=== PATIENT | born 2005 | race Caucasian/White ===

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

== ENCOUNTER 2024-02-29 21:25 | Emergency (ER) | payer OTHER, SELFPAY ==
[2024-02-29 21:53] VITALS: BP 131/86; PULSE 118; RESP 18; TEMP 37.2; O2SAT 100; BMI 21.1
[2024-02-29 22:26] LABS: MANUAL DIFF FLAG NO
[2024-02-29 22:28] LABS: Basophils Percent Auto 0.3 %; Eosinophils Percent Auto 0.2 %; Hematocrit 39.5 %; Hemoglobin 13.7 g/dl; Imm Gran Abs Auto 0.05 X10*3/uL (0.00-0.03); Imm Gran Pct Auto 0.4 % (0.0-0.4); Lymphocytes Absolute Auto 1.9 X10*3/uL; Lymphocytes Percent Auto 15.3 %; Mean Corpuscular HGB Conc 34.7 g/dl; Mean Corpuscular Hemoglobin 31.4 pg; Mean Corpuscular Volume 90.6 fL; Monocytes Absolute Auto 1.3 X10*3/uL; Monocytes Percent Auto 10.4 %; Neutrophils Absolute Auto 9.3 x10*3/uL; Neutrophils Percent Auto 73.4 %; Platelet Count 210 X10*3/uL; Red Blood Count 4.36 X10*6/uL; Red Cell Distribution Width 11.9 % (11.0-16.0); White Blood Count 12.6 X10*3/uL
[2024-02-29 22:32] LABS: Appearance Urine Turbid; Color Urine Yellow; Glucose Urine UA Negative (Negative); Leukocyte Esterase Urine Large (3+) (Negative); Nitrite Urine Positive (Negative); Specific Gravity - Urine 1.015 (1.005-1.025); UMIC TRIGGER UACC YES; Urine Blood Large (3+) (Negative); Urine Ketones Negative (Negative); Urine Protein 30 (1+) mg/dL (Neg-Trace)
[2024-02-29 22:37] LABS: Bacteria Urine 4+ (None Seen); Hyaline Casts Urine 0-2 /LPF (0-2); RBC Urine >20 /HPF (0-2); UACC Culture Trigger YES; WBC Urine >50 /HPF (0-5)
[2024-02-29 22:41] LABS: Alanine Aminotransferase 25 U/L; Albumin Level 4.3 g/dL; Alkaline Phosphatase 66 U/L; Anion Gap 14; Aspartate Amino Transferase 37 U/L; Bilirubin Total 0.8 mg/dL; Blood Urea Nitrogen 8 mg/dL; Calcium 9.3 mg/dL; Carbon Dioxide 24 mmol/L; Chloride 105 mmol/L; Estimated Glomerular Filt Rate > 60; Glucose Random 105 mg/dL; Potassium 3.5 mmol/L; Sodium 139 mmol/L
[2024-03-01 00:32] VITALS: BP 100/59; PULSE 67; RESP 16; TEMP 36.6; O2SAT 96
[2024-03-01 01:20] VITALS: BP 100/59; PULSE 67; RESP 16; TEMP 36.6; O2SAT 96
--- NOTE | 2024-03-01 03:08 | PC.NURSE ---
pt is leaving due to wait times.
== END 2024-03-01 03:08 | disposition left against medical advice (07) ==
PROVIDERS: Emergency Provider Emergency Medicine; PCP Pediatrics
DX: B99.9 Unspecified infectious disease (principal)
CPT/HCPCS: 36415; 80053; 81001; 85025; 87086; 99282; 99283

== ENCOUNTER 2024-03-16 10:40 | Emergency (ER) | payer OTHER, SELFPAY ==
[2024-03-16 10:50] VITALS: BP 129/86; PULSE 105; RESP 20; TEMP 36.4; O2SAT 99; BMI 21.3
[2024-03-16 12:29] LABS: Basophils Absolute Auto 0.1 X10*3/uL; Basophils Percent Auto 0.4 %; Eosinophils Percent Auto 0.1 %; Hematocrit 42.1 %; Hemoglobin 14.3 g/dl; Imm Gran Abs Auto 0.14 X10*3/uL (0.00-0.03); Imm Gran Pct Auto 0.8 % (0.0-0.4); Lymphocytes Absolute Auto 1.6 X10*3/uL; Lymphocytes Percent Auto 8.3 %; MANUAL DIFF FLAG SCAN; Mean Corpuscular Hemoglobin 30.5 pg; Mean Corpuscular Volume 89.8 fL; Mean Platelet Volume 8.4 fL (9.4-12.4); Monocytes Absolute Auto 1.7 X10*3/uL; Monocytes Percent Auto 9.3 %; Neutrophils Absolute Auto 15.2 x10*3/uL; Neutrophils Percent Auto 81.1 %; Platelet Count 267 X10*3/uL; Red Blood Count 4.69 X10*6/uL; Red Cell Distribution Width 11.9 % (11.0-16.0); SCAN SMEAR FLAG 1; White Blood Count 18.7 X10*3/uL
[2024-03-16 12:47] LABS: Alanine Aminotransferase 17 U/L; Albumin Level 4.2 g/dL; Alkaline Phosphatase 75 U/L; Anion Gap 10; Aspartate Amino Transferase 23 U/L; Bilirubin Total 0.9 mg/dL; Blood Urea Nitrogen 9 mg/dL; Calcium 9.3 mg/dL; Carbon Dioxide 27 mmol/L; Chloride 103 mmol/L; Estimated Glomerular Filt Rate > 60; Glucose Random 95 mg/dL; Potassium 4.2 mmol/L; Sodium 136 mmol/L; Total Protein 7.5 g/dL
[2024-03-16 13:05] LABS: SLIDE REVIEW VERIFIED
[2024-03-16 13:06] LABS: Influenza A PCR NEGATIVE; Influenza B PCR NEGATIVE; Resp Syncy Virus RNA Qual PCR NEGATIVE (Negative); SARS COV2 PCR INHOUSE NEGATIVE
[2024-03-16 14:15] LABS: Appearance Urine Clear; Color Urine Yellow; Glucose Urine UA Negative (Negative); Leukocyte Esterase Urine Large (3+) (Negative); Nitrite Urine Negative (Negative); Specific Gravity - Urine <= 1.005 (1.005-1.025); UMIC TRIGGER UACC YES; Urine Blood Trace (Negative); Urine Ketones Negative (Negative); Urine Protein Negative (Neg-Trace)
[2024-03-16 14:17] LABS: Bacteria Urine 4+ (None Seen); Hyaline Casts Urine 0-2 /LPF (0-2); RBC Urine 0-2 /HPF (0-2); UACC Culture Trigger YES; WBC Urine 21-50 /HPF (0-5)
--- NOTE | 2024-03-16 18:18 | ED.ABDPAIN ---
HPI - Abdominal Pain General Chief Complaint: Abdominal Pain Stated Complaint: abd and back pain Source: patient Mode of arrival: ambulatory Limitations: no limitations History of Present Illness HPI narrative: 19-year-old non binary born female presents to the emergency department with urinary frequency, urgency, fatigue, malaise, myalgias, discomfort in bilateral lower back, burning with urination going on for the past few weeks worsening. Patient reports they were seen at [facility] they were given Bactrim for suspected UTI, symptoms slightly improved however never went away. Reports they do not think that the antibiotics worked well. Comes back in today because the UTI still has not gone away. Denies nausea, vomiting, abdominal pain, headache, vision changes, chest pain, shortness of breath, diarrhea, wheezing. Related Data Previous Rx's ?Medication ?Instructions ?Recorded cefuroxime axetil 250 mg tablet 250 mg PO BID 7 days #14 tabs 03/16/24 naproxen 500 mg tablet 500 mg PO BID #14 tabs 03/16/24 phenazopyridine 100 mg tablet 200 mg (2 x 100 mg) PO TID 2 days 03/16/24 (Pyridium) #6 tabs Allergies Allergy/AdvReac Type Severity Reaction Status Date / Time fruits Allergy Unknown Uncoded 03/16/24 10:54 Review of Systems Review of Systems Constitutional : No Weight loss, No Fever, No Chills, No Fatigue, No Malaise ENT/Mouth : No sore throat, No Rhinorrhea Eyes: No Eye Pain, No Swelling, No Redness Cardiovascular : No Chest Pain, No SOB, No Dyspnea on Exertion, No Orthopnea, No Edema, No Palpitations Respiratory : No Cough, No Sputum, No Wheezing Gastrointestinal : No Nausea, No Vomiting, No Diarrhea, No Constipation, No abdominal Pain, No Hematochezia, No Melena Genitourinary : + Dysuria, + Urinary Frequency, No Hematuria, Musculoskeletal : No joint pain, No Myalgias, No Joint Swelling Skin : No Skin Lesions, No rash Neuro : No Weakness, No Numbness, No Dizziness, No Headache Psych : No Anxiety/Panic, No Depression All other systems reviewed and are negative Yes all other systems are reviewed and are negative PMFSH Past Medical History Attestation statement: The following information was validated with the patient. Source: old records reviewed and nursing notes reviewed Surgical History Hx of bilateral mastectomy Social History Social History Patient Tobacco Use Status: Current everyday Tobacco user Current occupational status: employed Current occupation: DENTAL EQUIPMENT TECHNICIAN, right hand dominant Physical Exam ED Vital Signs: Vital Signs - 24 hr 03/16/24 10:50 Temperature 97.6 F Pulse Rate 105 Respiratory Rate 20 Blood Pressure 129/86 Pulse Oximetry 99 Oxygen Delivery Method Room Air BMI result Body Mass Index 21.3 vss Appearance: Alert.? Oriented X3.? No acute distress.? Head: Normocephalic, atraumatic, no step-offs or deformities Eyes: Pupils equal, round and reactive to light.? Neck: Normal inspection.? Neck supple.? CVS: Normal heart rate and rhythm.? Pulses normal.? Respiratory: No respiratory distress.? Breath sounds normal.? Abdomen: Soft and nontender.? Skin: Skin warm and dry.? Normal skin color.? Normal skin turgor.? Extremities: No lower extremity edema.? No calf ttp. 5/5 strength to bilateral upper and lower extremities Back: No midline tenderness, no C-spine tenderness, full range of motion, no CVA tenderness bilaterally Neuro: Oriented X 3.? No motor deficit.? No sensory deficit. CN 2-12 intact Course Reevaluation(s) Reevaluation #1: CBC with leukocytosis and slight shift. Chemistry no acute findings requiring intervention. Normal BUN and creatinine. Patient's UA with 4+ bacteria, increased red blood cells and large amounts of leukocyte esterases. Negative nitrates. Flu, COVID, RSV negative. Educated patient on diagnosis and treatment plan, answered all question, patient verbalizes understanding. At this time patient will be discharged home, advised to return with new or worsening symptoms. Educated on worrisome signs and symptoms and when to return. At this time I feel comfortable discharge home. Time: 18:33 Medical Decision Making Medical Decision Making MDM Narrative: 19 yo presents w/ uti sx, body aches and flank pain bl X few weeks. Took bactrim recently PE benign Hx and pe concerning for uti vs cysstitis vs pylo. Unlikely kidney stone, obstructing uropathy, urosepsis. Unlikely metabolic derangement Labs, urine Differential Diagnosis Differential Diagnoses: The differential diagnosis associated with the presentation includes Hx and pe concerning for uti vs cysstitis vs pylo. Unlikely kidney stone, obstructing uropathy, urosepsis. Unlikely metabolic derangement Admission/Observation Consideration of admission/observation: Escalation of care including admission/observation considered Possible Lab Data MDM Lab Attestation statement: I reviewed the patient's lab results. 03/16/24 12:17 03/16/24 12:17 Labs: Lab Results 03/16/24 03/16/24 Range/Units 12:17 14:08 WBC 18.7 X10*3/uL RBC 4.69 X10*6/uL Hgb 14.3 g/dl Hct 42.1 % MCV 89.8 fL MCH 30.5 pg MCHC 34.0 g/dl RDW 11.9 (11.0-16.0) % Plt Count 267 X10*3/uL MPV 8.4 L (9.4-12.4) fL Immature Gran % (Auto) 0.8 H (0.0-0.4) % Neut % (Auto) 81.1 % Lymph % (Auto) 8.3 % Dickinson % (Auto) 9.3 % Eos % (Auto) 0.1 % Baso % (Auto) 0.4 % Lymph # (Auto) 1.6 X10*3/uL [place] # (Auto) 1.7 X10*3/uL Eos # (Auto) 0.0 X10*3/uL Baso # (Auto) 0.1 X10*3/uL Abs Immat Gran (auto) 0.14 H (0.00-0.03) X10*3/uL Absolute Neuts (auto) 15.2 x10*3/uL Absolute Nucleated RBC 0.000 (0.0-0.012) X10*3/uL Nucleated RBC % (auto) 0.0 (0.0-0.2) /100WBC Smear Tech's Comments VERIFIED Sodium 136 mmol/L Potassium 4.2 mmol/L Chloride 103 mmol/L Carbon Dioxide 27 mmol/L Anion Gap 10 BUN 9 mg/dL Creatinine 0.83 mg/dL Estim Creat Clear Calc TNP Estimated GFR > 60 Random Glucose 95 mg/dL Calcium 9.3 mg/dL Total Bilirubin 0.9 mg/dL AST 23 U/L ALT 17 U/L Alkaline Phosphatase 75 U/L Total Protein 7.5 g/dL Albumin 4.2 g/dL Urine Color Yellow Urine Appearance Clear Urine pH 6.0 (5.0-9.0) Ur Specific [place] <= 1.005 (1.005-1.025) Urine Protein Negative (Neg-Trace) mg/dL Urine Glucose (UA) Negative (Negative) mg/dL Urine Ketones Negative (Negative) mg/dL Urine Blood Trace (Negative) Urine Nitrite Negative (Negative) Ur Leukocyte Esterase Large (3+) H (Negative) Urine RBC 0-2 (0-2) /HPF Urine WBC 21-50 H (0-5) /HPF Ur Squamous Epith Cells 3-5 (0-2) /HPF Urine Bacteria 4+ (None Seen) Hyaline Casts 0-2 (0-2) /LPF Influenza Type A (PCR) NEGATIVE Influenza Type B (PCR) NEGATIVE RSV RNA Qual (PCR) NEGATIVE (Negative) SARS-CoV-2 RNA (RT-PCR) NEGATIVE Independent Historian Clinical information obtained from an independent historian. History obtained from or confirmed by: Other (Friend) External Record Review External record reviewed: Inpatient record, Office record, Outpatient record, Prior outpatient labs, Prior outpatient radiology, Primary care record and Outside ED record Prescription Management I considered prescription management with: Antibiotic Critical Care Time Critical Care Time Critical Care Time: No Discharge Plan Discharge Clinical Impression: Urinary tract infection Patient Disposition: Home, Self-Care Instructions: Urinary Tract Infection in Older Adults (ED) Additional Instructions: Take your medications as prescribed. If you were prescribed antibiotics today, it is important that you take your medication to their entirety, do not skip any doses, do not finish them early. Follow-up with your primary care provider this week. Return to the emergency department with new or worsening symptoms. Such as fevers, chills, chest pain, shortness of breath, nausea, vomiting, dizziness, headache, vision changes, lethargy In case of emergency call 911 Prescriptions: New naproxen 500 mg tablet 500 mg PO BID Qty: 14 0RF cefuroxime axetil 250 mg tablet 250 mg PO BID 7 Days Qty: 14 0RF phenazopyridine [Pyridium] 100 mg tablet 200 mg PO TID 2 Days Qty: 6 0RF Referrals: [facility] [Provider Group] - 2 days Rashel Oneil MD [Primary Care Provider] - 2 days ED Physician,Alejandro [Emergency Provider] - 2 days Print Language: Portuguese
[2024-03-16 18:19] VITALS: BP 108/72; PULSE 87; RESP 18; TEMP 36.9; O2SAT 100
[2024-03-16 18:35] VITALS: BP 108/72; PULSE 87; RESP 18; TEMP 36.9; O2SAT 100
== END 2024-03-16 18:36 | disposition home or self-care (01) ==
PROVIDERS: Emergency Provider Emergency Medicine; PCP Pediatrics
DX: N39.0 Urinary tract infection, site not specified (principal); Z03.818 Encounter for observation for suspected exposure to other biological agents ruled out
CPT/HCPCS: 0241U; 80053; 81001; 85025; 87086; 87088; 87186; 99282; 99283

== ENCOUNTER 2024-06-07 06:23 | Outpatient (REF) | payer SELFPAY ==
--- NOTE | ~2024-06-07 | XR_ITS ---
EXAMINATION: XR FOOT, RIGHT CLINICAL INFORMATION: Displaced fracture of the fifth metatarsal bone COMPARISON: Foot radiographs 11/28/2023 TECHNIQUE: 3 views of the foot FINDINGS: Previously seen tiny avulsed fracture fragment on the lateral aspect of the cuboid bone appears well corticated on today's exam with suspected osseous bridging. Joint spaces are maintained. No joint effusion. Mild soft tissue swelling about the dorsum of the foot. XR/XR foot RT min 3V IMPRESSION: 1. Previously seen tiny avulsed fracture fragment on the lateral aspect of the cuboid bone appears well corticated on today's exam with suspected osseous bridging, which can be seen in the setting of prior trauma. 2. Mild soft tissue swelling about the dorsum of the foot.
== END 2024-06-07 06:24 | disposition home or self-care (01) ==
LOC: HO.HOSX 06:23
PROVIDERS: Visit Provider Physician Assistant
DX: S93.491A Sprain of other ligament of right ankle, initial encounter (principal); S92.214D Nondisplaced fracture of cuboid bone of right foot, subsequent encounter for fracture with routine healing
CPT/HCPCS: 73630; 99212

== ENCOUNTER 2024-06-07 11:17 | Outpatient (AMB) | payer MEDICAID, SELFPAY ==
--- NOTE | 2024-06-07 11:44 | A.OFFVIS_ITS ---
Vital Signs 06/07/24 11:46 Height 5 ft 3 in Weight 120 lb BMI 21.3 Intake Visit Reasons: OV- Right, cuboid fracture-DOI 11/28/23 Intake Note: Kristal a 18 year old non-binary individual presents today for an ER follow up of right foot, DOI 11/27/23. Patient reports pain with weight bear and walking. States improvement in pain since making appointment however pain continues and lump has been getting worse. At their last appointment patient was referred to PT however unable to attend. Allergies fruits Allergy (Uncoded 06/07/24 11:51) Unknown HPI HPI OV- Right, cuboid fracture-DOI 11/28/23: Details: 19-year-old non binary individual who returns to the office today for a follow- up of right foot fracture, 11/28/23. She reports she has improvement in her pain since making the appointment however she continues to have pain with weight be aring and ambulation. She also states her lump has been getting worse. She was referred to physical therapy in her last however she was unable to attend. [facility] Surgical History Hx of bilateral mastectomy Social History Patient Tobacco Use Status: Current everyday Tobacco user Current occupational status: employed Current occupation: SOCIAL SERVICES DIRECTOR, right hand dominant Review of Systems Const All systems reviewed & are unremarkable except as noted in HPI and below Physical Exam Vital Signs: BMI result Body Mass Index 21.3 Const General: cooperative, healthy appearing, comfortable, no acute distress, well developed and alert Orientation/consciousness: patient oriented x3 HEENT Head: Yes normal to inspection, Yes normocephalic and Yes atraumatic Eyes General: appearance normal, both eyes and all related structures Resp Effort & Inspection: normal respiratory effort and able to speak in complete sentences Cardio Rate: regular rate Peripheral pulses: Peripheral pulses 2+ throughout GI Palpation (GI): Soft to palpation Skin Lesions: no lesions Rashes: no rashes Neuro General: patient oriented x3 Extrem Other: Right ankle: Normal to inspection with diffuse swelling along the top of the foot which extends laterally with tenderness.. No pain along the syndesmosis or anterior tibia. No laxity, NVI. Results Reviewed Results Reviewed: xrays of the right foot obtained in the office today Impression: nondisplaced fracture along the lateral aspect of the cuboid bone only visualized on one projection. Small avulsion fracture would be suspected in this location. Assessment & Plan Assessment & Plan (1) Right ankle sprain: Code(s): S93.401A - Sprain of unspecified ligament of right ankle, initial encounter Category: Medical Qualifiers: Encounter type: initial encounter Involved ligament of ankle: other ligament Qualified Code(s): S93.491A - Sprain of other ligament of right ankle, initial encounter (2) Avulsion fracture of right ankle: Code(s): S82.891A - Other fracture of right lower leg, initial encounter for closed fracture Category: Medical Qualifiers: Encounter type: initial encounter Fracture type: closed Qualified Code(s): S82.891A - Other fracture of right lower leg, initial encounter for closed fracture Plan We discussed options which include PT, NSAIDs and bracing. The patient will proceed with PT and NSAIDs. She was also fit for a compression ankle brace in the office today. If symptoms persist, she will contact me , otherwise, PRN. Orders: Orders XR foot RT min 3V 06/07/24 S92.351A - Displaced fracture of fifth metatarsal bone, right foot, initial encounter for closed fracture Patient Instructions: Scribed for Chapin Martínez PA-C, by Augustin Ventura medical management trainer, on 06/07/2024 at 10:45 AM EST.? I, Chapin Martínez PA-C, have personally reviewed and agree with the information entered by the scribe. Coding Level of Care Code Est Pt Level 3 (46962) Diagnoses Sprain of other ligament of right ankle, initial encounter S93.491A Encounter type: initial encounter Involved ligament of ankle: other ligament Closed avulsion fracture of right ankle, initial encounter S82.891A Encounter type: initial encounter Fracture type: closed
[2024-06-07 11:46] VITALS: BMI 21.3
== END 2024-06-07 12:18 | disposition home or self-care (01) ==
LOC: HO.HOS 11:17
PROVIDERS: Visit Provider Physician Assistant
DX: S93.491A Sprain of other ligament of right ankle, initial encounter (principal); S82.891A Other fracture of right lower leg, initial encounter for closed fracture
CPT/HCPCS: 99213